=== PATIENT | male | born 1980 | race Two or more races ===

== ENCOUNTER 2020-03-30 16:17 | Emergency (ER) | payer BC ==
[2020-03-30] MEDS ORDERED: SODIUM CHLORIDE 0.9% 500 ML INFUS.BAG IV ONE (16:23)
--- NOTE | 2020-03-30 16:30 | PDOC ---
History of Present Illness - General Chief Complaint: Weakness Stated Complaint: WHILE AT WORK WAS OVER HEATED TINGLING TO HANDS Time Seen by Provider: 03/30/20 16:23 History Source: Patient Exam Limitations: No Limitations - History of Present Illness Initial Comments: Gabriel is a 40 yo M who denies having any pmh who presents to the [facility] er stating he is dehydrated and feels like he has heat exhaustion. 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 States he has been trying to drink orally but still persistently sweating and feels weak, fatigued, and exhausted. Denies headache, nausea, vomiting, blurry vision, fevers, chills infections, chest pain, SOb, difficulty breathing PCP: None PSH: Left finger Sx Social Hx: Smokes 1 PPD. Denies alcohol or illicit drug usage Allergies: NKA, NKDA Past History - Medical History Allergies/Adverse Reactions: Allergies Allergy/AdvReac Type Severity Reaction Status Date / Time shellfish derived Allergy Intermediate Difficulty Verified 03/30/20 16:33 Breathing Home Medications: Ambulatory Orders Albuterol Sulfate [Albuterol Sulfate Hfa] 8.5 gm IH PRN 03/30/20 Ascorbic Acid [Vitamin C] 100 mg PO DAILY 03/30/20 Cholecalciferol (Vitamin D3) [Vitamin D3 -] 1,000 unit PO DAILY 03/30/20 Multivit-Mins/Iron/Folic/Lycop [Centrum Ultra Men's Tablet] 1 tab PO DAILY 03/30/20 - Psycho-Social/Smoking History Smoking History: Current every day smoker Have you smoked in the past 12 months: Yes Number of Cigarettes Smoked Daily: 20 Review of Systems - Review of Systems Able to Perform ROS?: Yes Comments:: CONSTITUTIONAL: Present: Fatigue Absent: fever, no chills EYES: Absent: visual changes ENT: Absent: ear pain, no sore throat CARDIOVASCULAR: Absent: chest pain, no palpitations RESPIRATORY: Absent: cough, no SOB GI: Absent: abdominal pain, no nausea, no vomiting, no constipation, no diarrhea GENITOURINARY: Absent: dysuria, no frequency, no hematuria MUSKULOSKELETAL: Absent: back pain, no arthralgia, no myalgia SKIN: Absent: rash NEURO: Absent: headache *Physical Exam - Physical Exam GENERAL: Well-appearing, well-nourished. No apparent distress. HEENT: Normocephalic, atraumatic. PERRL, EOM intact. CARDIOVASCULAR: Normal S1, S2. Regular rate and rhythm. PULMONARY: No evidence of respiratory distress. Lungs clear to auscultation bilaterally. No wheezing, rales or rhonchi. ABDOMEN: Soft, non-distended, non-tender. EXTREMITIES: Normal ROM in all four extremities. No gross deformities. SKIN: Warm, dry. No rash NEUROLOGICAL: No focal neurological deficits. Medical Decision Making - Medical Decision Making Gabriel is a 40 yo M who denies having any pmh who presents to the [facility] er stating he is dehydrated and feels like he has heat exhaustion. 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 States he has been trying to drink orally but still persistently sweating and feels weak, fatigued, and exhausted. Vital Signs Temp Pulse Resp BP Pulse Ox 98.6 F 80 20 139/86 99 03/30/20 16:19 03/30/20 16:19 03/30/20 16:19 03/30/20 16:19 03/30/20 16:19 DDx IBNLT: Dehydration, heat exhaustion, heat stroke Plan: EKG, IV hydration, re-assess EKG: NS rate of 59, pr 144, narrow complexes, qrs 82, normal axis, early repol hypertrophy, no ST elevations or depressions, QTc 388, normal T waves. No evidence of WPW, brugada, arvd, or wellens. Re-assessment: Patient feeling better after IV hydration and requesting to be discharged. The patient appears clinically sober, is A&O x4, and appears to be capable and have capacity to make reasonable decisions. The patient states they are currently in the emergency department, knows who the president is, states the correct time, correct day, and correct month. The patient is ambulatory in ER and has walked around the nursing station multiple times with a straight gait, and is not ataxic. Tolerating PO well, ate a sandwich and drank juice. Denies having any SI or HI. Patient states will not be driving home. I discussed the physical exam findings, ancillary test results and final diagnoses with the patient. I answered all of the patient's questions. The patient was satisfied with the care received and felt comfortable with the discharge plan and treatment plan. The patient will call their primary care physician within 24 hours to arrange follow-up and will return to the Emergency Department with any new, persistent or worsening symptoms. Disposition: Home with PCP referall and return precautions Please note, this clinical encounter is taking place during a federal and state health care emergency attributable to the novel Glass Virus pandemic. The [place] of the Department of Health and Human Services has declared, pursuant to the Public Health Service Act 319F-3 (42 U.S.C. 247d-6d), that a covered persons activities related to medical countermeasures against COVID-19 will be immune from liability under Federal and State law. Discharge - Discharge Information Problems reviewed: Yes Clinical Impression/Diagnosis: Dehydration Heat exhaustion Qualifiers: Encounter type: initial encounter Qualified Code(s): T67.5XXA - Heat exhaustion, unspecified, initial encounter Condition: Stable Disposition: HOME - Admission No - Follow up/Referral Referrals: [facility] at [place] [Provider Group] - Patient Discharge Instructions Patient Printed Discharge Instructions: DI for Heat Exhaustion and Heat Stroke Additional Instructions: You came into the ER with dehydration and heat exhaustion. You felt better after we gave you IV hydration. You must return to the Emergency Department with any new complaints, if your symptoms persist and do not improve or if you develop any other new or worsening concerns. As discussed, please call to follow up with your Primary Care physician in 1-2 days to discuss what happened to you in the emergency room, and make sure you are being looked after and taken care of. Your emergency room visit is not complete without this follow up appointment. Please read the attached handouts for further information about your ER visit and what you should do moving forward. Thank you for coming to the [facility]. We hope you feel better soon! Print Language: YI - Post Discharge Activity Work/Back to School Note: Back to Work
[2020-03-30 16:34] VITALS: TEMP 98.6; BMI 23.3
--- NOTE | 2020-03-30 17:21 | PDOC ---
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 No actual loss of consciousness, symptoms were progressive over 3 to 4 hours, presents for evaluation. No history of sudden syncope, unlimited exercise tolerance at baseline. No recent dehydration or infection. 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 Received IV fluids with improved symptoms EKG is normal Agrees with discharge plan, understands return criteria Heart Score/ECG Review #1 ECG reviewed & interpreted by me at: 17:09 General ECG Interpretation: Sinus Rhythm, Normal Rate (59), Normal Intervals (qtc 388, borderline LVH), No acute ischemic changes Discharge - Discharge Information Problems reviewed: Yes Clinical Impression/Diagnosis: Dehydration Heat exhaustion Qualifiers: Encounter type: initial encounter Qualified Code(s): T67.5XXA - Heat exhaustion, unspecified, initial encounter Condition: Stable Disposition: HOME - Follow up/Referral Referrals: [facility] at [place] [Provider Group] - Patient Discharge Instructions Patient Printed Discharge Instructions: DI for Heat Exhaustion and Heat Stroke Additional Instructions: You came into the ER with dehydration and heat exhaustion. You felt better after we gave you IV hydration. You must return to the Emergency Department with any new complaints, if your symptoms persist and do not improve or if you develop any other new or worsening concerns. As discussed, please call to follow up with your Primary Care physician in 1-2 days to discuss what happened to you in the emergency room, and make sure you are being looked after and taken care of. Your emergency room visit is not complete without this follow up appointment. Please read the attached handouts for further information about your ER visit and what you should do moving forward. Thank you for coming to the [facility]. We hope you feel better soon! Print Language: TAIWANESE - Post Discharge Activity
[2020-03-30 17:23] VITALS: BP 131/88; PULSE 79
--- NOTE | 2020-03-31 09:14 | EKG ---
Test Reason : Blood Pressure : / mmHG Vent. Rate : 059 BPM Atrial Rate : 059 BPM P-R Int : 144 ms QRS Dur : 082 ms QT Int : 392 ms P-R-T Axes : 062 073 054 degrees QTc Int : 388 ms SINUS BRADYCARDIA MODERATE VOLTAGE CRITERIA FOR LVH, MAY BE NORMAL VARIANT BORDERLINE ECG NO PREVIOUS ECGS AVAILABLE Confirmed by MD ESTEFANIA, BARRY ([id number]) on 03/31/2020 9:14:44 AM Referred By: DR WILLIAMSON Confirmed By:BARRY MAC MD
== END 2020-03-30 17:28 | disposition home or self-care (01) ==
LOC: FER 16:17
DX: T67.5XXA Heat exhaustion, unspecified, initial encounter (principal); E86.0 Dehydration
CPT/HCPCS: 93005; 99284-25

== ENCOUNTER 2020-04-05 08:41 | Inpatient (IN) | payer BC ==
[2020-04-05] MEDS ORDERED: SODIUM CHLORIDE 0.9% 500 ML INFUS.BAG IV ONE (09:13)
[2020-04-05] MEDS ORDERED: ACETAMINOPHEN 1000 MG/100 ML VIAL (NON FORMULARY) IVPB ONE (09:13)
--- NOTE | 2020-04-05 09:17 | PDOC ---
History of Present Illness - General Chief Complaint: Pain, Acute Stated Complaint: RT. FLANK PAIN Time Seen by Provider: 04/05/20 08:56 History Source: Patient Exam Limitations: No Limitations - History of Present Illness Initial Comments: 04/05/20 09:14 HPI 40 YOM with h/o Asthma, current tobacco use, L5 disc herniation and chronic back pain, hemorrhoids p/w RUQ abdominal pain since last night. Pt states he has sharp, nonradiating RUQ pain beginning last night, constant, no exacerbating or alleviating factors no trauma. no meds taken [employer]. 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 Denies fever, chills, chest pain, SOB, palpitation, dizziness, weakness, N, V, D, dysuria, urgency or frequency, hematuria, bladder and bowel problems, focal weakness/paresthesias, leg swelling/pain, rash. No sick contacts or travel. No new changes in medications. No suspicious food intake. no prior sx of similar symptoms. Allergies: shellfish Past medical History/PSH: as above Social history: Lives with family. No ETOH or drug use. +current tobacco use. Meds: none Review of systems Constitutional: no fevers or chills. No weakness HEENT: no headache or dizziness. No congestion. No visual/hearing disturbances. CVS: no cp or syncope. Resp: no sob. No cough. Gastrointestinal: +abdominal pain, No nausea, vomiting, diarrhea. no bloody stools Genitourinary: no urinary sx, hematuria. MUSCULOSKELETAL: No joint pain and swelling. No neck or back pain. SKIN: no redness or skin changes, no discharge, no rash. No wounds. Hematologic: no easy bruising/bleeding. NEUROLOGIC: No headache, dizziness, LOC or altered mental status. No weakness, numbness or tingling. Psych: no anxiety or depression Allergic/Immunologic: no allergies All other systems reviewed and negative, or as documented in HPI. Physical exam General: Well appearing, awake and alert, NAD. not colicky appearing. HEENT: NCAT, PERRL, EOMI, clear conjunctiva, anicteric, moist mucus membranes, clear oropharynx, no oral lesions.. Neck: neck supple, FROM Resp: CTAB, normal and even respirations, no respiratory distress CVS: RRR, no murmurs, 2+ peripheral pulses throughout, no peripheral edema Abdomen: soft, +vol guarding, +RUQ tenderness, +Gautam's. no rebound. no CVAT. Back: nontender, normal inspection and ROM MSK: no edema, CAMPOS x4, ROM intact. No clubbing or cyanosis. normal bulk and tone. Extremities: no calf tenderness Neuro: alert, oriented appropriately; no focal neurologic deficits Psych: Calm and cooperative Skin: warm and well perfused, cap refill <2 sec, normal color, no rash or skin discoloration. 04/05/20 12:40 04/05/20 13:19 Past History - Medical History Allergies/Adverse Reactions: Allergies Allergy/AdvReac Type Severity Reaction Status Date / Time shellfish derived Allergy Intermediate Difficulty Verified 04/05/20 08:47 Breathing Home Medications: Ambulatory Orders Albuterol Sulfate [Albuterol Sulfate Hfa] 8.5 gm IH PRN 03/30/20 Ascorbic Acid [Vitamin C] 100 mg PO DAILY 03/30/20 Cholecalciferol (Vitamin D3) [Vitamin D3 -] 1,000 unit PO DAILY 03/30/20 Multivit-Mins/Iron/Folic/Lycop [Centrum Ultra Men's Tablet] 1 tab PO DAILY 03/30/20 Asthma: Yes COPD: No - Immunization History Immunization Up to Date: Yes - Psycho-Social/Smoking History Smoking History: Never smoked Have you smoked in the past 12 months: Yes Number of Cigarettes Smoked Daily: 20 - Substance Abuse Hx (Audit-C & DAST Scrn) How often the patient has a drink containing alcohol: Never Score: In Men: 4 or > Positive; In Women: 3 or > Positive: 0 Screen Result (Pos requires Nsg. Audit-10AR): Negative *Physical Exam - Vital Signs Last Vital Signs Temp Pulse Resp BP Pulse Ox 97.8 F 82 17 124/72 99 04/05/20 08:48 04/05/20 08:48 04/05/20 08:48 04/05/20 08:48 04/05/20 08:48 ED Treatment Course - LABORATORY CBC & Chemistry Diagram: 04/05/20 09:00 04/05/20 09:00 Medical Decision Making - Medical Decision Making 04/05/20 09:17 Vital Signs Temp Pulse Resp BP Pulse Ox 97.8 F 82 17 124/72 99 04/05/20 08:48 04/05/20 08:48 04/05/20 08:48 04/05/20 08:48 04/05/20 08:48 VS reviewed, wnl DDx abdominal pain: Renal colic, biliary colic, metabolic/electrolyte derangem ents. GERD, PUD, esophageal spasm, pancreatitis, hepatitis, constipation, colitis, gastroenteritis, cholecystitis, UTI, pyelonephritis, ileus, SBO, medication side effect, hernia, appendicitis, diverticulitis, mesenteric ischemia. msk strain, mesenteric adenitis, psoas abscess. limited bedside ultrasound no gb stones, distended gb, normal cbd, AGBW <3cm, no hydronephrosis, normal bladder, no retention, no pelvic FF CT a/p indicated to r/o appy, given atypical sx, unremarkable sono labs and lytes wnl, normal lipase and Lipase mild leukocytosis of 12K. 04/05/20 11:48 Official abdomen ultrasound is otherwise unremarkable, there is mild hepatomegaly otherwise no evidence of cholecystitis or stones. There is trace biliary sludge in the gallbladder lumen but normal bile ducts in size 04/05/20 12:41 however, CT a/p with cholecystitis, distended GB and now with pericholecystic FF. sludge, no stones otherwise, There are subcentimeter hepatic cysts. There is a nonspecific cyst measuring 1.1 cm in the posterior superior border of the pancreatic body. No biliary tract dilatation, very small free fluid is noted. acalculus cholecystitis? may need MRCP given findings now txs and pre op labs ordered IV abx, ceftriaxone and flagyl for empiric coverage covid [address] Calderon consult called for surgery, awaiting call back spoke with Dr Chávez, agree with plan and will come to eval. admit to [facility] for management, npo, bowel rest, analgesia, abx admitting to Dr Ozuna hospitalist, s/o to Dr Cleveland 04/05/20 12:42 04/05/20 12:55 04/05/20 13:20 04/05/20 13:20 Discharge - Discharge Information Problems reviewed: Yes Clinical Impression/Diagnosis: Biliary sludge, Acute cholecystitis Condition: Fair - Admission Yes - Follow up/Referral - Patient Discharge Instructions - Post Discharge Activity
[2020-04-05] MEDS ORDERED: ACETAMINOPHEN INJECTION 100 ML IVPB ONE (09:23)
[2020-04-05 09:28] LABS: BASO % 0.4 % (0-2.0); EOS % 2.2 % (0-4.5); HEMATOCRIT 45.5 % (35.4-49); HEMOGLOBIN 14.6 GM/dL (11.7-16.9); LYMPH % 12.6 % (8-40); MCHC 32.1 g/dl (32.0-35.9); MEAN CELL VOLUME 90.3 fl (80-96); MEAN PLT VOLUME 8.1 fl (7.5-11.1); MONO % 8.3 % (3.8-10.2); NEUT % 76.5 % (42.8-82.8); PLATELET COUNT 227 K/MM3 (134-434); RBC 5.03 M/mm3 (4.00-5.60); RDW 12.6 % (11.9-15.9); WHITE BLOOD COUNT 12.2 K/mm3 (4.0-10.0)
[2020-04-05 10:08] LABS: ALBUMIN 3.6 g/dl (3.4-5.0); BILIRUBIN,TOTAL 0.4 mg/dL (0.2-1); BLOOD UREA NITROGEN 17.4 mg/dL (7-18); CALCIUM 8.7 mg/dL (8.5-10.1); CREATININE 1.1 mg/dL (0.55-1.3); POTASSIUM 4.9 mmol/L (3.5-5.1); TOT PROT 6.7 g/dl (6.4-8.2)
[2020-04-05] MEDS ORDERED: CEFTRIAXONE 1,000 MG in DEXTROSE 5%-WATER - 50 ML IVPB ONE (12:43)
[2020-04-05] MEDS ORDERED: CEFTRIAXONE 1 GM/50 ML BAG ONE (12:48)
[2020-04-05 13:08] LABS: URINE APPEARANCE CLEAR; URINE BILIRUBIN NEGATIVE (NEGATIVE); URINE COLOR YELLOW; URINE GLUCOSE (UA) NEGATIVE (NEGATIVE); URINE KETONE NEGATIVE (NEGATIVE); URINE LEUK ESTERASE NEGATIVE (NEGATIVE); URINE NITRITE NEGATIVE (NEGATIVE); URINE PROTEIN NEGATIVE (NEGATIVE)
--- NOTE | 2020-04-05 13:21 | PN ---
Teaching Attending Note Name of Resident: Mariam Grayson ATTENDING PHYSICIAN STATEMENT I saw and evaluated the patient. I reviewed the resident's note and discussed the case with the resident. I agree with the resident's findings and plan as documented. SUBJECTIVE: 40yo M with hx of mild intermittent asthma who presented today with RUQ pain that started last night. Patient reports consistent diet with high fatty foods and starting a new weight gain supplement. He reports this has not previously occurred. He denies any vomiting or nausea at the current moment. He reports that his pain was stabbing in nature, but has markedly improved since he has been treated in the ER. In ER, pt was given Rocephin/Flagyl. CT A/P confirmed pericholecystic stranding and thickened wall with U/S showing no dilation of ducts or any GB stones noted. Patient otherwise denies fever/chills, SOB, CP, palpitations, diarrhea/constipation, polyuria, dysuria. Past medical History: As above PSHx: None Social history: Lives with family. No alcohol or drugs. Current 1ppd tobacco user for multiple years Meds: Albuterol inhaler PRN (rarely used), Vitamins: D3, Multivitamin Fam Hx: OBJECTIVE: Vital Signs Temperature 97.8 F 04/05/20 08:48 Pulse Rate 82 04/05/20 08:48 Respiratory Rate 17 04/05/20 08:48 Blood Pressure 124/72 04/05/20 08:48 O2 Sat by Pulse Oximetry (%) 99 04/05/20 08:48 Gen: NAD, awake, alert, oriented x3 HEENT: NC/AT, EOMI, NASIR, sclera anicteric, MMM Neck: No JVD LUNG: CTA b/l without wheezes or rales. on RA CARD: RRR, no murmurs appreciated, normal S1/S2 ABD: Soft, tenderness RUQ, nondistended, normoactive BS, no guarding, no rebound, no hepatomegaly via percussion EXT: 2+ distal extremity pulses b/l, no edema Skin: No jaundice, no rashes. CBC, BMP 04/05/20 09:00 04/05/20 09:00 Hepatic Panel Total Bilirubin 0.4 mg/dL (0.2-1) 04/05/20 09:00 AST 30 U/L (15-37) 04/05/20 09:00 ALT 26 U/L (13-61) 04/05/20 09:00 Alkaline Phosphatase 92 U/L (45-117) 04/05/20 09:00 Albumin 3.6 g/dl (3.4-5.0) 04/05/20 09:00 ASSESSMENT AND PLAN: Alcalculous Cholecystitis Mild Leukocytosis Incidental Pancreatic Cyst History of Mild intermittent Asthma, not in exacerbation --Agree with Rocephin/Flagyl; to continue --NPO --Pain control PRN --Zofran PRN pending Qtc evaluation --Surgery on board to evaluate patient --D5-LR@75cc/hr for gentle hydration while NPO --Counselled on diet to be followed for future --Pancreatic cyst noted incidentally on CT A/P without any pancreatic inflammation --Will need MRI for evaluation which can be deferred to outpatient follow-up with PCP FEN: Fluids - as above Electrolytes - No abnormalitites Nutrition: NPO as above DVT PPX: SCDs both legs Rest per resident note DO Kan Mcgarry IM
[2020-04-05 13:36] LABS: INR 0.92 (0.83-1.09); PROTHROMBIN TIME (PATIENT) 10.9 SEC (9.7-13.0)
[2020-04-05 13:38] LABS: ACTIVATED PTT 29.3 SECONDS (25.2-36.5)
[2020-04-05] MEDS ORDERED: ACETAMINOPHEN 1000 MG/100 ML VIAL (NON FORMULARY) IVPB PRN (14:24)
--- NOTE | 2020-04-05 14:26 | HP ---
<Mariam Grayson - Last Filed: 04/06/20 07:01> CHIEF COMPLAINT: abdominal pain PCP: none HISTORY OF PRESENT ILLNESS: 40 yo male with PMHx of asthma, hemorrhoids, and L5 disc injury, presented to the ED with 1 day of sharp persistent abdominal pain. Patient pain woke him up from sleep at 3 in the morning. The pain was worse with movement or touching his right upper abdominal area. At 7 am, he said the pain was a 10/10 and decided he couldn't go to work and he had to come to the hospital. He was given Tylenol in the ED and currently rates the pain as a 3/3. He does endorse eating a burger and chicken nuggets from [employer] yesterday, as well as a few beers yesterday at a [employer]. He says he eats fast food very frequently. He also reports recently starting a weight gain drink called ProBueno. He denies having any pain like this before. He denies fever n/v/d or any color changes in his stool. ER course was notable for: (1) CT Ab/pelvis w/contrast + cholecystitis and pancreatic cyst (2) US Ab mild hepatomegaly (3) CBC, leukocytosis 12.2 (4) Ceftriaxone and Flagy started Recent Travel: denies PAST MEDICAL HISTORY: - asthma (rescue inhaler 1-2 times a month) - hemorrhoids - L5 disc injury PAST SURGICAL HISTORY: - L thumb reconstructive surgery Family Hx: - father HTN Social History: Smokin ppd Alcohol: occasional, few drinks on weekends Drugs: marijuana only denies cocaine, heroine, vaping, or any other drugs Allergies shellfish derived Allergy (Intermediate, Verified 04/05/20 08:47) Difficulty Breathing HOME MEDICATIONS: Home Medications Medication Instructions Recorded Albuterol Sulfate [Albuterol 8.5 gm IH PRN 03/30/20 Sulfate Hfa] Ascorbic Acid [Vitamin C] 100 mg PO DAILY 03/30/20 Cholecalciferol (Vitamin D3) 1,000 unit PO DAILY 03/30/20 [Vitamin D3 -] Multivit-Mins/Iron/Folic/Lycop 1 tab PO DAILY 03/30/20 [Centrum Ultra Men's Tablet] REVIEW OF SYSTEMS CONSTITUTIONAL: Absent: fever, chills, diaphoresis, generalized weakness, malaise, loss of appetite, weight change HEENT: Absent: rhinorrhea, nasal congestion, throat pain, throat swelling, difficulty swallowing, mouth swelling, ear pain, eye pain, visual changes CARDIOVASCULAR: Absent: chest pain, syncope, palpitations, irregular heart rate, lightheadedn ess, peripheral edema RESPIRATORY: Absent: cough, shortness of breath, dyspnea with exertion, orthopnea, wheezing, stridor, hemoptysis GASTROINTESTINAL: Abdominal pain Absent: abdominal distension, nausea, vomiting, diarrhea, constipation, melena, hematochezia GENITOURINARY: Absent: dysuria, frequency, urgency, hesitancy, hematuria, flank pain, genital pain MUSCULOSKELETAL: Absent: myalgia, arthralgia, joint swelling, back pain, neck pain SKIN: Absent: rash, itching, pallor HEMATOLOGIC/IMMUNOLOGIC: Absent: easy bleeding, easy bruising, lymphadenopathy, frequent infections ENDOCRINE: Absent: unexplained weight gain, unexplained weight loss, heat intolerance, cold intolerance NEUROLOGIC: Absent: headache, focal weakness or paresthesias, dizziness, unsteady gait, seizure, mental status changes, bladder or bowel incontinence PSYCHIATRIC: Absent: anxiety, depression, suicidal or homicidal ideation, hallucinations. PHYSICAL EXAMINATION Vital Signs - 24 hr 04/05/20 04/05/20 08:48 13:58 Temperature 97.8 F Pulse Rate 82 Pulse Rate [ 73 Right] Respiratory 17 16 Rate Blood Pressure 124/72 Blood Pressure 142/88 [Right Arm] O2 Sat by Pulse 99 99 Oximetry (%) GENERAL: Awake, alert, and fully oriented, in no acute distress. HEAD: Normal with no signs of trauma. EYES: Pupils equal, round and reactive to light, extraocular movements intact, sclera anicteric, conjunctiva clear. ENT: oropharynx clear without exudates. Moist mucous membranes. NECK: Normal range of motion, supple without lymphadenopathy LUNGS: Breath sounds equal, clear to auscultation bilaterally. HEART: Regular rate and rhythm, normal S1 and S2 ABDOMEN: Soft, tender to RUQ with guarding, + clark sign, normoactive bowel sounds. MUSCULOSKELETAL: Normal range of motion at all joints. No bony deformities or tenderness. No CVA tenderness. UPPER EXTREMITIES: 2+ pulses, warm, well-perfused. No cyanosis. No clubbing. No peripheral edema. LOWER EXTREMITIES: 2+ pulses, warm, well-perfused. No calf tenderness. No peripheral edema. NEUROLOGICAL: Cranial nerves II-XII intact. Normal speech. PSYCHIATRIC: Cooperative. Good eye contact. Appropriate mood and affect. SKIN: Warm, dry, normal turgor, no rashes or lesions noted, normal capillary refill. Laboratory Results - last 24 hr 04/05/20 04/05/20 04/05/20 09:00 09:00 12:37 WBC 12.2 H RBC 5.03 Hgb 14.6 Hct 45.5 MCV 90.3 MCH 29.0 MCHC 32.1 RDW 12.6 Plt Count 227 MPV 8.1 Absolute Neuts (auto) 9.4 H Neutrophils % 76.5 Lymphocytes % 12.6 Monocytes % 8.3 Eosinophils % 2.2 Basophils % 0.4 Nucleated RBC % 0 PT with INR INR PTT (Actin FS) Sodium 141 Potassium 4.9 Chloride 108 H Carbon Dioxide 25 Anion Gap 8 BUN 17.4 Creatinine 1.1 Est GFR (CKD-EPI)AfAm 95.46 Est GFR (CKD-EPI)NonAf 82.36 Random Glucose 108 H Calcium 8.7 Total Bilirubin 0.4 AST 30 ALT 26 Alkaline Phosphatase 92 Total Protein 6.7 Albumin 3.6 Lipase 85 Urine Color Yellow Urine Appearance Clear Urine pH 7.0 Ur Specific [place] 1.029 Urine Protein Negative Urine Glucose (UA) Negative Urine Ketones Negative Urine Blood Negative Urine Nitrite Negative Urine Bilirubin Negative Urine Urobilinogen 1.0 Ur Leukocyte Esterase Negative Blood Type Antibody Screen 04/05/20 04/05/20 13:13 13:13 WBC RBC Hgb Hct MCV MCH MCHC RDW Plt Count MPV Absolute Neuts (auto) Neutrophils % Lymphocytes % Monocytes % Eosinophils % Basophils % Nucleated RBC % PT with INR 10.90 INR 0.92 PTT (Actin FS) 29.3 Sodium Potassium Chloride Carbon Dioxide Anion Gap BUN Creatinine Est GFR (CKD-EPI)AfAm Est GFR (CKD-EPI)NonAf Random Glucose Calcium Total Bilirubin AST ALT Alkaline Phosphatase Total Protein Albumin Lipase Urine Color Urine Appearance Urine pH Ur Specific [place] Urine Protein Urine Glucose (UA) Urine Ketones Urine Blood Urine Nitrite Urine Bilirubin Urine Urobilinogen Ur Leukocyte Esterase Blood Type O POSITIVE Antibody Screen Negative IMAGING: AB CT w/contrast: Acute cholecystitis is identified. No obvious radiopaque biliary calculus is seen. There is no biliary tract dilatation. A very small amount of free fluid is noted within the lower pelvis. A 1.1 x 1.1 cm nonspecific cyst is seen within or abutting the posterosuperior border of the pancreatic body. Correlate with contrast-enhanced MRI including MRCP. Subcentimeter hepatic cysts. AB US: Mild hepatomegaly, otherwise normal abdominal sonogram. ASSESSMENT/PLAN: 40 yo male with PMHx of asthma, hemorrhoids and L5 herniated disc presents to the ED with 1 day of sharp abdominal pain in RUQ. CT showed cholecystitis. Admitted to hospital for IV antibiotic treatment. Cholecystitis - CT report + for cholecystitis - leukocytosis - continue IV ceftriaxone & flagyl - surgery consulted - f/u recs - D5 LR 75 ml/hr - NPO - Tylenol for pain - PRN zofran - educate on better diet and decreasing fatty foods Pancreatic Cyst - follow up MRI/MRCP recommended, can be done as outpatient DVT prophylaxis - SCDs Smoker - 14 mg nicotine patch/ can increase if needed - educated on quitting FEN - IVF - NPO Visit type - Emergency Visit Emergency Visit: Yes ED Registration Date: 04/05/20 Care time: The patient presented to the Emergency Department on the above date and was hospitalized for further evaluation of their emergent condition. - New Patient This patient is new to me today: Yes Date on this admission: 04/05/20 - Critical Care Critical Care patient: No ATTENDING PHYSICIAN STATEMENT I saw and evaluated the patient. I reviewed the resident's note and discussed the case with the resident. I agree with the resident's findings and plan as documented. SUBJECTIVE: OBJECTIVE: ASSESSMENT AND PLAN: <Alexandre Ozuna - Last Filed: 04/06/20 11:44> CHIEF COMPLAINT: PCP: HISTORY OF PRESENT ILLNESS: ER course was notable for: (1) (2) (3) Recent Travel: PAST MEDICAL HISTORY: PAST SURGICAL HISTORY: Social History: Smoking: Alcohol: Drugs: Allergies shellfish derived Allergy (Intermediate, Verified 04/05/20 08:47) Difficulty Breathing HOME MEDICATIONS: Home Medications Medication Instructions Recorded Albuterol Sulfate [Albuterol 8.5 gm IH PRN 03/30/20 Sulfate Hfa] Ascorbic Acid [Vitamin C] 100 mg PO DAILY 03/30/20 Cholecalciferol (Vitamin D3) 1,000 unit PO DAILY 03/30/20 [Vitamin D3 -] Multivit-Mins/Iron/Folic/Lycop 1 tab PO DAILY 07/28/20 [Centrum Ultra Men's Tablet] REVIEW OF SYSTEMS CONSTITUTIONAL: Absent: fever, chills, diaphoresis, generalized weakness, malaise, loss of appetite, weight change HEENT: Absent: rhinorrhea, nasal congestion, throat pain, throat swelling, difficulty swallowing, mouth swelling, ear pain, eye pain, visual changes CARDIOVASCULAR: Absent: chest pain, syncope, palpitations, irregular heart rate, lightheadedness, peripheral edema RESPIRATORY: Absent: cough, shortness of breath, dyspnea with exertion, orthopnea, wheezing, stridor, hemoptysis GASTROINTESTINAL: Absent: abdominal pain, abdominal distension, nausea, vomiting, diarrhea, constipation, melena, hematochezia GENITOURINARY: Absent: dysuria, frequency, urgency, hesitancy, hematuria, flank pain, genital pain MUSCULOSKELETAL: Absent: myalgia, arthralgia, joint swelling, back pain, neck pain SKIN: Absent: rash, itching, pallor HEMATOLOGIC/IMMUNOLOGIC: Absent: easy bleeding, easy bruising, lymphadenopathy, frequent infections ENDOCRINE: Absent: unexplained weight gain, unexplained weight loss, heat intolerance, cold intolerance NEUROLOGIC: Absent: headache, focal weakness or paresthesias, dizziness, unsteady gait, seizure, mental status changes, bladder or bowel incontinence PSYCHIATRIC: Absent: anxiety, depression, suicidal or homicidal ideation, hallucinations. PHYSICAL EXAMINATION Vital Signs - 24 hr 04/05/20 04/05/20 04/05/20 13:14 13:58 18:25 Temperature 98.6 F 98.4 F Pulse Rate 70 65 Pulse Rate [ 73 Right] Respiratory 16 16 20 Rate Blood Pressure 129/85 122/65 Blood Pressure 142/88 [Right Arm] O2 Sat by Pulse 99 99 100 Oximetry (%) 04/05/20 04/05/20 04/06/20 19:32 21:00 06:00 Temperature 98.3 F 98.4 F Pulse Rate 68 72 Pulse Rate [ Right] Respiratory 20 20 20 Rate Blood Pressure 141/81 123/66 Blood Pressure [Right Arm] O2 Sat by Pulse 100 100 Oximetry (%) 04/06/20 04/06/20 09:00 10:00 Temperature 98.6 F Pulse Rate 70 Pulse Rate [ Right] Respiratory 20 20 Rate Blood Pressure 143/78 Blood Pressure [Right Arm] O2 Sat by Pulse 100 100 Oximetry (%) GENERAL: Awake, alert, and fully oriented, in no acute distress. HEAD: Normal with no signs of trauma. EYES: Pupils equal, round and reactive to light, extraocular movements intact, s clera anicteric, conjunctiva clear. No lid lag. EARS, NOSE, THROAT: Ears normal, nares patent, oropharynx clear without exudates. Moist mucous membranes. NECK: Normal range of motion, supple without lymphadenopathy, JVD, or masses. LUNGS: Breath sounds equal, clear to auscultation bilaterally. No wheezes, and no crackles. No accessory muscle use. HEART: Regular rate and rhythm, normal S1 and S2 without murmur, rub or gallop. ABDOMEN: Soft, nontender, not distended, normoactive bowel sounds, no guarding, no rebound, no masses. No hepatomegaly or splenomegaly. MUSCULOSKELETAL: Normal range of motion at all joints. No bony deformities or tenderness. No CVA tenderness. UPPER EXTREMITIES: 2+ pulses, warm, well-perfused. No cyanosis. No clubbing. No peripheral edema. LOWER EXTREMITIES: 2+ pulses, warm, well-perfused. No calf tenderness. No peripheral edema. NEUROLOGICAL: Cranial nerves II-XII intact. Normal speech. Normal gait. PSYCHIATRIC: Cooperative. Good eye contact. Appropriate mood and affect. SKIN: Warm, dry, normal turgor, no rashes or lesions noted, normal capillary refill. Laboratory Results - last 24 hr 04/05/20 04/05/20 04/05/20 12:37 13:13 13:13 WBC RBC Hgb Hct MCV MCH MCHC RDW Plt Count MPV PT with INR 10.90 INR 0.92 PTT (Actin FS) 29.3 Sodium Potassium Chloride Carbon Dioxide Anion Gap BUN Creatinine Est GFR (CKD-EPI)AfAm Est GFR (CKD-EPI)NonAf Random Glucose Calcium Phosphorus Magnesium Total Bilirubin AST ALT Alkaline Phosphatase Total Protein Albumin Urine Color Yellow Urine Appearance Clear Urine pH 7.0 Ur Specific [place] 1.029 Urine Protein Negative Urine Glucose (UA) Negative Urine Ketones Negative Urine Blood Negative Urine Nitrite Negative Urine Bilirubin Negative Urine Urobilinogen 1.0 Ur Leukocyte Esterase Negative COVID-19 (EULA) Not detected Blood Type Antibody Screen 04/05/20 04/06/20 04/06/20 13:13 06:23 06:23 WBC 9.0 RBC 4.84 Hgb 14.2 Hct 43.7 MCV 90.2 MCH 29.3 MCHC 32.4 RDW 12.9 Plt Count 212 MPV 8.0 PT with INR INR PTT (Actin FS) Sodium 141 Potassium 4.0 Chloride 107 Carbon Dioxide 26 Anion Gap 9 BUN 8.6 Creatinine 1.0 Est GFR (CKD-EPI)AfAm 107.12 Est GFR (CKD-EPI)NonAf 92.42 Random Glucose 97 Calcium 8.3 L Phosphorus 4.1 Magnesium 2.1 Total Bilirubin 0.9 AST 18 ALT 22 Alkaline Phosphatase 66 Total Protein 5.8 L Albumin 3.3 L Urine Color Urine Appearance Urine pH Ur Specific [place] Urine Protein Urine Glucose (UA) Urine Ketones Urine Blood Urine Nitrite Urine Bilirubin Urine Urobilinogen Ur Leukocyte Esterase COVID-19 (EULA) Blood Type O POSITIVE Antibody Screen Negative ASSESSMENT/PLAN: ATTENDING PHYSICIAN STATEMENT I saw and evaluated the patient. I reviewed the resident's note and discussed the case with the resident. I agree with the resident's findings and plan as documented. SUBJECTIVE: OBJECTIVE: ASSESSMENT AND PLAN:
[2020-04-05] MEDS ORDERED: DEXTROSE 5%-LACTATED RINGERS 1,000 ML IV SCH (14:30)
[2020-04-05 14:50] VITALS: BMI 25.1
[2020-04-05] MEDS: NICOTINE 14 MG/24 HOURS TOPICAL PATCH TD SCH (17:46)
[2020-04-06 07:53] LABS: HEMATOCRIT 43.7 % (35.4-49); HEMOGLOBIN 14.2 GM/dL (11.7-16.9); MCH 29.3 pg (25.7-33.7); MCHC 32.4 g/dl (32.0-35.9); MEAN CELL VOLUME 90.2 fl (80-96); PLATELET COUNT 212 K/MM3 (134-434); RBC 4.84 M/mm3 (4.00-5.60); RDW 12.9 % (11.9-15.9)
--- NOTE | 2020-04-06 08:06 | CONSULT ---
- Consultation REQUESTING PROVIDER: General Surgery - Alexandre Chávez CONSULT REQUEST: We have been asked to surgically evaluate this patient for acute cholecystitis PCP: Justin Burrell MD HPI: Called to patrick 40 yo male with PMHx as noted below. Presents to [facility] ED w/ c/o ruq abd pain x1 day. Pain awoke him from his sleep around 3AM. Points to his epigastric region/RUQ. Pain increased in intensity (10/10) and decided to come to hospital for further evaluation. Last meal eaten prior to this episode consisted of burger and chicken nuggets from [employer]. Denies any post prandial n/v. He has experienced this pain before in the past but never sought medical attention as it would subside on it's own after a few hours. Started in Ceftriaxone and Flagyl in the ED. Denies n/v/f/c, CP, palpitations, SOB or SOTELO. Denies change in urine color. Denies PUD/GERD. Denies melena or hematochazia In the ER he had the following imaging studies: 1. ABD/Pelvis CT w/contrast: + cholecystitis and pancreatic cyst 1.1 x 1.1 (posterior superior body of pancreas) 2. ABD U/S:mild hepatomegaly Social History: Smokin ppd Alcohol: occasional, few drinks on weekends Drugs: marijuana only (denies cocaine, heroine, vaping, or any other drugs) PMHx: Asthma. Hemorrhoids, L5 disc injury PSHx: L thumb reconstructive surgery Home Meds: Albuterol Sulfate [Albuterol Sulfate Hfa] 8.5 gm IH PRN 03/30/20 Ascorbic Acid [Vitamin C] 100 mg PO DAILY 03/30/20 Cholecalciferol (Vitamin D3) [Vitamin D3 -] 1,000 unit PO DAILY 03/30/20 Multivit-Mins/Iron/Folic/Lycop [Centrum Ultra Men's Tablet] 1 tab PO DAILY 03/30/20 Allergies: Shellfish (difficulty breathing) ROS: 12 system reviewed and considered negative except for what's contained in the HPI. PE: GENERAL: A&O. NAD HEAD: NC. AT. EYES: PERRL, sclera anicteric, conjunctiva clear. NECK: Normal ROM, supple without lymphadenopathy, JVD, or masses. LUNGS: Unlabored respirations on room air. CTA bilat HEART: RRR ABDOMEN: Soft. Mild RUQ ttp. + BS in all quadrants. No guarding, no rebound, no palpable/pulsatile masses. MUSCULOSKELETAL: No CVA tenderness. UPPER EXTREMITIES: 2+ pulses, warm, well-perfused. No cyanosis. Cap refill <2 seconds. No peripheral edema. LOWER EXTREMITIES: 2+ pulses, warm, well-perfused. No calf tenderness. No peripheral edema. NEUROLOGICAL: Normal speech, gait not observed. PSYCH: Cooperative. Good eye contact. Appropriate mood and affect. SKIN: Warm, dry, normal turgor, no rashes or lesions noted. Last Vital Signs Temp Pulse Resp BP Pulse Ox 98.4 F 72 20 123/66 100 04/06/20 06:00 04/06/20 06:00 04/06/20 06:00 04/06/20 06:00 04/05/20 21:00 CBC 04/06/20 06:23 Hepatic Panel Total Bilirubin 0.4 mg/dL (0.2-1) 04/05/20 09:00 AST 30 U/L (15-37) 04/05/20 09:00 ALT 26 U/L (13-61) 04/05/20 09:00 Alkaline Phosphatase 92 U/L (45-117) 04/05/20 09:00 Albumin 3.6 g/dl (3.4-5.0) 04/05/20 09:00 INR, PTT INR 0.92 (0.83-1.09) 04/05/20 13:13 Blood Type Blood Type O POSITIVE 04/05/20 13:13 Serology Test 04/05/20 13:13 COVID-19 (EULA) Not detected Problem List - Problems (1) Acute cholecystitis Assessment/Plan: Currently NPO since yesterday IV abx Covid negative OR for lap donald possible open today with Dr. Chávez Medical optimization/clearance PRN pain management Will need out-patient follow-up for 1.1 x 1.1 cm pancreatic cyst Above plan discussed with Dr. Chávez and agrees. Code(s): K81.0 - ACUTE CHOLECYSTITIS (2) Low back pain Code(s): M54.5 - LOW BACK PAIN Visit type - Case Type Case Type: ED Admission - Emergency Emergency Visit: Yes ED Registration Date: 04/05/20 Care time: The patient presented to the Emergency Department on the above date and was hospitalized for further evaluation of their emergent condition. - New patient This patient is new to me today: Yes Date on this admission: 04/06/20
[2020-04-06] MEDS ORDERED: DEXTROSE 5%-WATER 100 ML IVPB ONE (08:43)
[2020-04-06 08:52] LABS: ALBUMIN 3.3 g/dl (3.4-5.0); BILIRUBIN,TOTAL 0.9 mg/dL (0.2-1); BLOOD UREA NITROGEN 8.6 mg/dL (7-18); CALCIUM 8.3 mg/dL (8.5-10.1); MAGNESIUM 2.1 mg/dL (1.8-2.4); PHOSPHOROUS 4.1 mg/dL (2.5-4.9); TOT PROT 5.8 g/dl (6.4-8.2)
[2020-04-06] MEDS: NICOTINE 14 MG/24 HOURS TOPICAL PATCH TD SCH (09:59)
[2020-04-06] MEDS ORDERED: CEFTRIAXONE 2 GM in DEXTROSE 5%-WATER 100 ML IVPB SCH (10:00)
--- NOTE | 2020-04-06 10:45 | EKG ---
Test Reason : Blood Pressure : / mmHG Vent. Rate : 060 BPM Atrial Rate : 060 BPM P-R Int : 148 ms QRS Dur : 086 ms QT Int : 402 ms P-R-T Axes : 060 066 050 degrees QTc Int : 402 ms NORMAL SINUS RHYTHM NORMAL ECG WHEN COMPARED WITH ECG OF 30-MAR-2020 17:09, NO SIGNIFICANT CHANGE WAS FOUND Confirmed by Everardo Henriquez ([id number]) on 04/06/2020 10:44:47 AM Referred By: Confirmed By:Everardo Henriquez
[2020-04-06] MEDS ORDERED: MIDAZOLAM HCL 2 MG/2 ML SINGLE DOSE VIAL ONE ×2 (11:18)
[2020-04-06] MEDS ORDERED: PROPOFOL 20 ML ONE (11:19)
[2020-04-06] MEDS ORDERED: ROCURONIUM BROMIDE 50 MG/5 ML SYRINGE ONE (11:19)
[2020-04-06] MEDS ORDERED: oxyCODONE HCL 5 MG TABLET PO PRN (11:51)
[2020-04-06] MEDS ORDERED: morphine SULFATE 4 MG/ML VIAL IVPB PRN (11:51)
--- NOTE | 2020-04-06 11:54 | OP ---
Operative Note - Note: Operative Date: 04/06/20 Pre-Operative Diagnosis: acute acalculus cholecystitis Operation: laparoscopic cholecystectomy, lavage Findings: thickened, inflamed gb Post-Operative Diagnosis: Same as Pre-op Surgeon: Alexandre Chávez Benefits Coordinator: Saurabh Sanders Anesthesiologist/[employer] PROFESSOR: Kalie Coley MD Anesthesia: General Specimens Removed: gb Estimated Blood Loss (mls): 10 Operative Report Dictated: Yes
--- NOTE | 2020-04-06 12:45 | PN ---
Teaching Attending Note Name of Resident: Mariam Grayson ATTENDING PHYSICIAN STATEMENT I saw and evaluated the patient. I reviewed the resident's note and discussed the case with the resident. I agree with the resident's findings and plan as documented. SUBJECTIVE: Patient states that he has a poor diet due to his work. States that he has been having varying degree of symptoms over the last week, not all related to food intake. Currently reports pressure like sensation in the RUQ OBJECTIVE: Vital Signs Period Temp Pulse Resp BP Sys/Castillo Pulse Ox Last 24 Hr 98.3 F-98.6 F 65-73 16-20 122-143/65-88 99-100 GENERAL: Awake, alert, and fully oriented, in no acute distress. HEAD: Normal with no signs of trauma. EYES: Pupils equal, round and reactive to light, extraocular movements intact, sclera anicteric, conjunctiva clear. No lid lag. EARS, NOSE, THROAT: Ears normal, nares patent, oropharynx clear without exudates. Moist mucous membranes. NECK: Normal range of motion, supple without lymphadenopathy, JVD, or masses. LUNGS: Breath sounds equal, clear to auscultation bilaterally. No wheezes, and no crackles. No accessory muscle use. HEART: Regular rate and rhythm, normal S1 and S2 without murmur, rub or gallop. ABDOMEN: Soft,tender in RUQ, BS+, No rebound tenderness MUSCULOSKELETAL: Normal range of motion at all joints. No bony deformities or tenderness. No CVA tenderness. UPPER EXTREMITIES: 2+ pulses, warm, well-perfused. No cyanosis. No clubbing. Cap refill <2 seconds. No peripheral edema. LOWER EXTREMITIES: 2+ pulses, warm, well-perfused. No calf tenderness. No peripheral edema. NEUROLOGICAL: Cranial nerves II-XII intact. Normal speech. Normal gait. PSYCHIATRIC: Cooperative. Good eye contact. Appropriate mood and affect. SKIN: Warm, dry, normal turgor, no rashes or lesions noted. ASSESSMENT AND PLAN: 40 y/o M who presents with nausea/vomiting abdominal pain found to have acute cholecystitis -Continue IV fluids, Abx No signs of Cholangitis at this time plan for lap donald today appreciate Sx recs Advance diet following sx.
[2020-04-06] MEDS ORDERED: NEOSTIGMINE METHYLSULFATE 0.5 MG/ML - 10 ML MDV ONE (12:51)
--- NOTE | 2020-04-06 12:55 | CONS ---
DATE OF CONSULTATION: 04/06/2020 REASON FOR CONSULTATION: Acute cholecystitis. This is an emergency room consultation requested by the emergency room physician. BRIEF HISTORY: This is a 40-year-old male without significant past medical history who presents with severe right upper quadrant pain since 3 a.m. on Sunday. In the emergency room he had a CAT scan of his abdomen and pelvis which showed a thick and inflamed gallbladder. No stones were seen, however, on CAT scan as well as ultrasound. The patient was also noted to have an elevated white blood cell count and he was admitted to the hospital for acute cholecystitis and started on intravenous antibiotics. His symptoms have not improved. He states his pain is worse. He is still requiring pain medication. He denies nausea or vomiting. PAST MEDICAL HISTORY: Asthma. PAST SURGICAL HISTORY: Includes a left thumb surgery without complication. SOCIAL HISTORY: Positive for alcohol and tobacco. He has been encouraged to quit. FAMILY HISTORY: Negative for malignancy in the immediate family. ALLERGIES: SHELLFISH, but no medications. MEDICATIONS: He takes a rescue inhaler. REVIEW OF SYSTEMS: General: Denies fatigue or malaise. Cardiac: Denies chest pain or palpitations. Respiratory: Denies shortness of breath or wheeze. Gastrointestinal: No nausea. No vomiting. As stated in the HPI, admits to right upper quadrant abdominal pain. Genitourinary: Denies dysuria. Musculoskeletal: Denies joint pain. Psychiatric: Denies anxiety, depression or hearing voices. PHYSICAL EXAMINATION: General: This is a thin 40-year-old male in no distress. Vital Signs: He is afebrile. His vital signs are stable. HEENT: His head is normocephalic. His sclerae are anicteric. Neck: Supple. Chest: Clear. Abdomen: Soft. He has significant right upper quadrant tenderness with rebound and guarding. He has no surgical scars. He has a small ventral hernia in the central portion of his abdomen that is reducible. Extremities: Have no edema. Skin: He does have tattoo art on his right upper quadrant and chest area. LABORATORY: His white blood cell count is 9.0, which is down from 12.2. He did have a shift of 9.4 absolute neutrophils. His chemistries show normal liver function tests. Review of his imaging is as stated in the HPI. There is also noted an incidental finding of a pancreatic cyst measuring 1 cm in size that was not calcified and there was a very small amount of free fluid in the pelvis. ASSESSMENT: This is a 40-year-old male with right upper quadrant pain, peritoneal findings in right upper quadrant, CAT scan findings of acute cholecystitis. Even though the patient does not have stones seen on ultrasound or CAT scan, clinically this is acute cholecystitis. I suspect the stones just are not showing up on imaging but are actually present. At this point it is reasonable to proceed with cholecystectomy. Patient understands that there may be another etiology of his pain, however, that has not been elucidated on CAT scan and his history of physical exam findings are consistent. At this point will move in the direction of surgery. Risks and benefits of surgery have been explained to the patient in detail. These are including but not limited to the possibility of conversion to open, the possibility of injury to common bile duct, the possibility of a cystic duct stump leak, the possibility of injury to viscera, possibility of blood loss requiring blood transfusion, possibility of misdiagnosis, possibility of future hernia, possibility of future obstruction plus a multitude of medical risks including but not limited to cardiac, neurologic, pulmonary and vascular complications, even . The patient understands these risks and is agreeable to surgery. He has also been tested for the COVID virus which is negative. He understands that there is a possibility this is a false-negative test and if he actually does have the virus and has surgery he is at increased risk of respiratory failure and thromboembolic events and . Patient also realizes that as far as the incidental finding of the pancreatic cyst, that will not be addressed by me and that will be managed by his medical team and his outpatient providers. DO MONICA JOHNSTON/[id number]
--- NOTE | 2020-04-06 13:10 | PN ---
Physical Exam: SUBJECTIVE: Patient seen and examined bedside. Reports feeling better. Still have some RUQ tenderness. Denies n/v/d, fever, chills or chest pain. Going for lap donald today. OBJECTIVE: Vital Signs Period Temp Pulse Resp BP Sys/Castillo Pulse Ox Last 24 Hr 98.3 F-98.6 F 65-73 16-20 122-143/65-88 99-100 GENERAL: The patient is awake, alert, and fully oriented, in no acute distress. HEAD: Normal with no signs of trauma. EYES: PERRL, extraocular movements intact, sclera anicteric, conjunctiva clear. ENT: moist mucous membranes. NECK: Trachea midline, full range of motion, supple. LUNGS: Breath sounds equal, clear to auscultation bilaterally HEART: Regular rate and rhythm, S1, S2 ABDOMEN: + RUQ tenderness, nondistended, normoactive bowel sounds EXTREMITIES: warm, well-perfused, no edema. NEUROLOGICAL: Normal speech PSYCH: Normal mood, normal affect. SKIN: Warm, dry, normal turgor, no rashes or lesions noted Laboratory Results - last 24 hr 04/05/20 04/05/20 04/05/20 12:37 13:13 13:13 WBC RBC Hgb Hct MCV MCH MCHC RDW Plt Count MPV PT with INR 10.90 INR 0.92 PTT (Actin FS) 29.3 Sodium Potassium Chloride Carbon Dioxide Anion Gap BUN Creatinine Est GFR (CKD-EPI)AfAm Est GFR (CKD-EPI)NonAf Random Glucose Calcium Phosphorus Magnesium Total Bilirubin AST ALT Alkaline Phosphatase Total Protein Albumin Urine Color Yellow Urine Appearance Clear Urine pH 7.0 Ur Specific [place] 1.029 Urine Protein Negative Urine Glucose (UA) Negative Urine Ketones Negative Urine Blood Negative Urine Nitrite Negative Urine Bilirubin Negative Urine Urobilinogen 1.0 Ur Leukocyte Esterase Negative COVID-19 (EULA) Not detected Blood Type Antibody Screen 04/05/20 04/06/20 04/06/20 13:13 06:23 06:23 WBC 9.0 RBC 4.84 Hgb 14.2 Hct 43.7 MCV 90.2 MCH 29.3 MCHC 32.4 RDW 12.9 Plt Count 212 MPV 8.0 PT with INR INR PTT (Actin FS) Sodium 141 Potassium 4.0 Chloride 107 Carbon Dioxide 26 Anion Gap 9 BUN 8.6 Creatinine 1.0 Est GFR (CKD-EPI)AfAm 107.12 Est GFR (CKD-EPI)NonAf 92.42 Random Glucose 97 Calcium 8.3 L Phosphorus 4.1 Magnesium 2.1 Total Bilirubin 0.9 AST 18 ALT 22 Alkaline Phosphatase 66 Total Protein 5.8 L Albumin 3.3 L Urine Color Urine Appearance Urine pH Ur Specific [place] Urine Protein Urine Glucose (UA) Urine Ketones Urine Blood Urine Nitrite Urine Bilirubin Urine Urobilinogen Ur Leukocyte Esterase COVID-19 (EULA) Blood Type O POSITIVE Antibody Screen Negative Active Medications Generic Name Dose Route Start Last Admin Trade Name Freq PRN Reason Stop Dose Admin Acetaminophen 1,000 mg 04/05/20 14:24 04/06/20 06:41 Ofirmev Injection - IVPB 04/06/20 14:25 1,000 mg Q6H PRN Administration PAIN LEVEL 1-3 Enoxaparin Sodium 40 mg 04/07/20 10:00 Lovenox - SQ DAILY DEBORAH Ceftriaxone Sodium 2 gm/ 100 mls @ 200 mls/hr 04/06/20 10:00 04/06/20 10:18 Dextrose IVPB 200 mls/hr DAILY DEBORAH Administration Protocol Metronidazole 500 mg in 100 mls @ 100 mls/hr 04/05/20 18:00 04/06/20 08:59 Flagyl 500mg Premixed Ivpb - IVPB 100 mls/hr Q8H-IV DEBORAH Administration Dextrose/Lactated Ringer's 1,000 mls @ 75 mls/hr 04/05/20 14:30 04/05/20 17:46 D5-Lr - IV 75 mls/hr ASDIR DEBORAH Administration Morphine Sulfate 8 mg 04/06/20 11:51 Morphine Sulfate IVPB Q3H PRN PAIN LEVEL 7 - 10 Nicotine 14 mg 04/05/20 15:30 04/06/20 09:59 Nicoderm Patch - TD Not Given DAILY DEBORAH Oxycodone HCl 7.5 mg 04/06/20 11:51 Roxicodone - PO Q4H PRN PAIN LEVEL 4 - 6 Pantoprazole Sodium 40 mg 04/07/20 10:00 Protonix Iv IVPUSH DAILY DEBORAH ASSESSMENT/PLAN: 40 yo male with PMHx of asthma, hemorrhoids and L5 herniated disc presents to the ED with 1 day of sharp abdominal pain in RUQ. CT showed cholecystitis. Admitted to hospital for IV antibiotic treatment. Cholecystitis - CT report + for cholecystitis - IV ceftriaxone & flagyl - surgery consulted (Dr. Paulino) Lap donald today brief op note: thickened inflamed gallbladder protonix 40 IV daily oxycodone and morphine on board for pain control f/u post op recs Pancreatic Cyst - follow up MRI/MRCP recommended, can be done as outpatient DVT prophylaxis - SCDs - lovenox 40 Smoker - 14 mg nicotine patch FEN - IVF - NPO - can start to increase diet post op as per surgery recs Visit type - Emergency Visit Emergency Visit: Yes ED Registration Date: 04/05/20 Care time: The patient presented to the Emergency Department on the above date and was hospitalized for further evaluation of their emergent condition. - New Patient This patient is new to me today: No - Critical Care Critical Care patient: No - Discharge Referral Referred to [facility] Med P.C.: Yes Physician Referral: Lito Saha DO (GI) ATTENDING PHYSICIAN STATEMENT I saw and evaluated the patient. I reviewed the resident's note and discussed the case with the resident. I agree with the resident's findings and plan as documented. SUBJECTIVE: OBJECTIVE: ASSESSMENT AND PLAN:
--- NOTE | 2020-04-06 13:12 | SURG ---
Surgery Inlayer Silver Note Inlayer Silver: Saurabh Sanders PA-C Date of Service: 04/06/20 Diagnosis: acute acalculus cholecystitis Procedure: laparoscopic cholecystectomy, lavage I was present for the entirety of the operative procedure. For further detail, please refer to operative report. Visit type - Case Type Case Type: ED Admission - Emergency Emergency Visit: Yes ED Registration Date: 04/05/20 Care time: The patient presented to the Emergency Department on the above date and was hospitalized for further evaluation of their emergent condition. - New patient This patient is new to me today: No - Critical Care Critical Care patient: No
[2020-04-06] MEDS ORDERED: ONDANSETRON 4 MG/2 ML VIAL IVPUSH PRN (13:16)
[2020-04-06] MEDS ORDERED: LACTATED RINGERS SOLUTION 1,000 ML IV SCH (13:30)
[2020-04-06] MEDS ORDERED: DEXTROSE 5%-LACTATED RINGERS 1,000 ML IV SCH (13:34)
[2020-04-06] MEDS ORDERED: ACETAMINOPHEN 1000 MG/100 ML VIAL (NON FORMULARY) IVPB PRN (13:34)
--- NOTE | 2020-04-06 13:53 | OP ---
DATE OF OPERATION: 04/06/2020 PREOPERATIVE DIAGNOSIS: Acute acalculous cholecystitis. POSTOPERATIVE DIAGNOSIS: Acute acalculous cholecystitis. PROCEDURE: Laparoscopic cholecystectomy and lavage. SURGEON: Alexandre Chávez DO MERCURY RECOVERER: DANIEL Martins ANESTHESIOLOGIST: SANDIE Banda- SPECIMEN: Gallbladder. FINDINGS: A thickened, inflamed, edematous gallbladder without obvious stones. BLOOD LOSS: Minimal. DRAINS: None. COMPLICATIONS: None. DISPOSITION: Recovery room in stable condition. BRIEF HISTORY: This is a 40-year-old male who presented to [facility] with signs and symptoms of acute cholecystitis. He had a CAT scan evidence to support that. There were no stones noted on ultrasound. The patient presents now for surgery. PROCEDURE: The patient was placed in the supine position. After general anesthesia was initiated the abdomen was prepped and draped in sterile fashion. The patient was already on Rocephin antibiotic. A transverse incision was made infraumbilical with a scalpel used to go through the skin and subcutaneous tissue. A ventral hernia was noted above this incision and was not addressed at the time of surgery. The fascia was lifted. Veress needle was inserted. Pneumoperitoneum was created. Next an 11-mm trocar was placed followed by insertion of a 10-mm 0-degree laparoscope. An additional 11-mm trocar was placed subxiphoid and two 5-mm trocars placed in the right upper quadrant. Attention was turned to the gallbladder. It was pale, edematous, thickened and distended consistent with acute cholecystitis. The fundus was lifted cephalad. The infundibulum retracted laterally. The peritoneal peel was dissected down, exposing a small cystic duct and cystic artery. Both were clipped and divided. The gallbladder was liberated from the liver bed using electrocautery and hemostasis was maintained using electrocautery. The gallbladder was placed in a specimen bag, removed through the infraumbilical trocar site and sent to Pathology marked as "specimen." No bleeding was noted. At this point trocars were removed under direct visualization. Gas was released under the suction device. The fascia at the infraumbilical trocar site was closed with multiple interrupted 0 Vicryl sutures. Again, the hernia above this was not addressed. The 4 skin incisions were closed with Biosyn. Dermabond dressing was placed. Overall the patient tolerated the procedure well. There were no complications. DO MONICA JOHNSTON/[id number] MTDD
[2020-04-07 07:58] LABS: HEMATOCRIT 42.2 % (35.4-49); HEMOGLOBIN 13.6 GM/dL (11.7-16.9); MCH 28.9 pg (25.7-33.7); MCHC 32.2 g/dl (32.0-35.9); MEAN CELL VOLUME 89.7 fl (80-96); MEAN PLT VOLUME 8.3 fl (7.5-11.1); PLATELET COUNT 207 K/MM3 (134-434); RDW 12.4 % (11.9-15.9); WHITE BLOOD COUNT 14.2 K/mm3 (4.0-10.0)
[2020-04-07 08:35] LABS: BILIRUBIN,TOTAL 0.6 mg/dL (0.2-1); CREATININE 1.1 mg/dL (0.55-1.3); POTASSIUM 4.9 mmol/L (3.5-5.1); TOT PROT 5.5 g/dl (6.4-8.2)
[2020-04-07 08:40] LABS: ALBUMIN 3.2 g/dl (3.4-5.0); CALCIUM 8.3 mg/dL (8.5-10.1); MAGNESIUM 1.9 mg/dL (1.8-2.4); PHOSPHOROUS 4.3 mg/dL (2.5-4.9)
[2020-04-07] MEDS ORDERED: DEXTROSE 5%-WATER 100 ML IVPB ONE (09:16)
[2020-04-07] MEDS ORDERED: PANTOPRAZOLE SODIUM 40 MG VIAL IVPUSH SCH (10:00)
[2020-04-07] MEDS ORDERED: NICOTINE 14 MG/24 HOURS TOPICAL PATCH TD SCH (10:00)
[2020-04-07] MEDS ORDERED: CEFTRIAXONE 2 GM in DEXTROSE 5%-WATER 100 ML IVPB SCH (10:00)
[2020-04-07] MEDS ORDERED: ENOXAPARIN NA (PORCINE) 40 MG/0.4 ML DISP.SYRIN SQ SCH (10:00)
[2020-04-07 10:02] VITALS: BP 125/64; PULSE 81; TEMP 98.6
[2020-04-07] MEDS: ENOXAPARIN NA (PORCINE) 40 MG/0.4 ML DISP.SYRIN SQ SCH ×2 (10:08→10:14)
[2020-04-07] MEDS ORDERED: ACETAMINOPHEN 325 MG TABLET (FP) PO ONE (10:45)
--- NOTE | 2020-04-07 11:04 | PN ---
Progress Note (short form) - Note Progress Note: Surgery note: Pt states that he tolerated some soup last pm. No nausea or emesis. Vital Signs Period Temp Pulse Resp BP Sys/Castillo Pulse Ox Last 24 Hr 98 F-98.8 F 51-108 16-22 124-151/48-88 98-100 GEN: A&0x3, NAD ABD: soft, non-distended, inc tenderness. Dressing c/d/i with dermabond. Umbilical dressing with small amount of blood on gauze. LE: no calf tenderess or swelling noted b/l CBC, BMP 04/07/20 06:20 04/07/20 06:20 Hepatic Panel Total Bilirubin 0.6 mg/dL (0.2-1) 04/07/20 06:20 AST 36 U/L (15-37) 04/07/20 06:20 ALT 63 U/L (13-61) H 04/07/20 06:20 Alkaline Phosphatase 64 U/L (45-117) 04/07/20 06:20 Albumin 3.2 g/dl (3.4-5.0) L 04/07/20 06:20 A/P: 40 yo male s/p lap donald, POD#1 Diet as tolerated OOB and ambulate Plan for discharge to home today F/u with Dr. Chávez in the office
--- NOTE | 2020-04-07 12:19 | PN ---
Teaching Attending Note Name of Resident: Mariam Grayson ATTENDING PHYSICIAN STATEMENT I saw and evaluated the patient. I reviewed the resident's note and discussed the case with the resident. I agree with the resident's findings and plan as documented. SUBJECTIVE: Pt tolerating PO intake Ready to go home pain is controlled OBJECTIVE: Vital Signs Period Temp Pulse Resp BP Sys/Castillo Pulse Ox Last 24 Hr 98 F-98.8 F 51-108 16-22 124-151/48-88 98-100 GENERAL: Awake, alert, and fully oriented, in no acute distress. HEAD: Normal with no signs of trauma. EYES: Pupils equal, round and reactive to light, extraocular movements intact, sclera anicteric, conjunctiva clear. No lid lag. EARS, NOSE, THROAT: Ears normal, nares patent, oropharynx clear without exudates. Moist mucous membranes. NECK: Normal range of motion, supple without lymphadenopathy, JVD, or masses. LUNGS: Breath sounds equal, clear to auscultation bilaterally. No wheezes, and no crackles. No accessory muscle use. HEART: Regular rate and rhythm, normal S1 and S2 without murmur, rub or gallop. ABDOMEN: Soft, tender over incision sites. Incision areas with dressing in place MUSCULOSKELETAL: Normal range of motion at all joints. No bony deformities or tenderness. No CVA tenderness. UPPER EXTREMITIES: 2+ pulses, warm, well-perfused. No cyanosis. No clubbing. Cap refill <2 seconds. No peripheral edema. LOWER EXTREMITIES: 2+ pulses, warm, well-perfused. No calf tenderness. No peripheral edema. NEUROLOGICAL: Cranial nerves II-XII intact. Normal speech. Normal gait. PSYCHIATRIC: Cooperative. Good eye contact. Appropriate mood and affect. SKIN: Warm, dry, normal turgor, no rashes or lesions noted. ASSESSMENT AND PLAN: 40 y/o M who presents with acute cholecystitis s/p cholecystectomy Patient feels well this morning, minimal pain. tolerating PO intake Patient advised to improve his diet, decrease fatty food intake. Plan to discharge today, caution with lifting weights. please see discharge summary for additional information
--- NOTE | 2020-04-07 12:29 | DS ---
Physical Exam: SUBJECTIVE: Patient seen and examined bedside. Pain is well controlled. Reports having eaten last night with no problems. Patient reports flatulence since surgery. OBJECTIVE: Vital Signs Period Temp Pulse Resp BP Sys/Castillo Pulse Ox Last 24 Hr 98 F-98.8 F 51-108 16-22 124-151/48-88 98-100 PHYSICAL EXAM GENERAL: The patient is awake, alert, and fully oriented, in no acute distress. HEAD: Normal with no signs of trauma. EYES: PERRL, extraocular movements intact, sclera anicteric, conjunctiva clear. ENT: moist mucous membranes. NECK: Trachea midline, full range of motion, supple. LUNGS: Breath sounds equal, clear to auscultation bilaterally HEART: Regular rate and rhythm, S1, S2 ABDOMEN: mild tenderness RUQ and umbilicus near incision sit. Incisions sit look clean without purulent discharge. EXTREMITIES: warm, well-perfused, no edema. NEUROLOGICAL: Normal speech PSYCH: Normal mood, normal affect. SKIN: Warm, dry, normal turgor, no rashes or lesions noted LABS Laboratory Results - last 24 hr 04/07/20 04/07/20 06:20 06:20 WBC 14.2 H RBC 4.70 Hgb 13.6 Hct 42.2 MCV 89.7 MCH 28.9 MCHC 32.2 RDW 12.4 Plt Count 207 MPV 8.3 Sodium 140 Potassium 4.9 Chloride 107 Carbon Dioxide 27 Anion Gap 7 L BUN 13.0 Creatinine 1.1 Est GFR (CKD-EPI)AfAm 95.46 Est GFR (CKD-EPI)NonAf 82.36 Random Glucose 100 Calcium 8.3 L Phosphorus 4.3 Magnesium 1.9 Total Bilirubin 0.6 AST 36 ALT 63 H Alkaline Phosphatase 64 Total Protein 5.5 L Albumin 3.2 L HOSPITAL COURSE: Patient 40 yo male with PMHx of asthma, hemorrhoids and L5 herniated disc presents to the ED with 1 day of sharp abdominal pain in RUQ. CT showed cholecystitis. He was started on IV flagyl and ceftriaxone. Patient underwent a lap donald which showed a thickened inflamed gallbladder. After surgery, patient felt well. Antibiotics were stopped. The patient was discharged and told to take Tylenol for pain and continue to abstain from smoking. He must follow up with surgery within [address] patient's CT also showed a pancreatic cysts and it was recommended that he follow that up as an outpatient with an MRI. We have referred the patient to GI for further workup. Date of Admission:04/05/20 Date of Discharge: 04/07/20 Minutes to complete discharge: 36 Discharge Summary Problems reviewed: Yes Reason For Visit: ACUTE CHOLECYSTITIS BILIARY SLUDGE Current Active Problems Acute cholecystitis (Acute) Biliary sludge (Acute) Condition: Good - Instructions Diet, Activity, Other Instructions: Visit: You came to the hospital with abdominal pain. You were found to have inflammation of your gallbladder. You were treated with fluids and antibiotics. Surgery performed a laparoscopic removal of your gallbladder. You are now stable enough for discharge. A pancreatic cyst was also found on imaging that did not require treatment at this time. Medication: You may take acetaminophen (Tylenol) 1,000mg every 6 hours as needed for pain. Do not take more than 4,000mg a day. Follow Up: Dr. Paulino, surgery, in 1 week for post procedure evaluation. Dr. Saha, gastroenterology, in 2 weeks for the pancreatic cyst to discuss further evaluation. Follow up with your primary care provider within 2 weeks for continuity of care. If you do not have a primary care provider, you may come to the hospital clinic. The information is in your discharge papers. Other Instructions: Avoid heavy lifting until you are reevaluated by your surgeon. Keep surgical sites dry and clean. You may shower but do not submerge them until cleared by your surgeon. Return to the emergency room or call 911 if you develop abdominal pain not relieved with over the counter medications, fever above 101, nausea, vomiting, or diarrhea. Referrals: Jaun Frankel MD [Staff Physician] - 2 Weeks (Resident Clinic) Asif Saha DO [Staff Physician] - 2 Weeks Alexandre Chávez MD [Staff Physician] - 1 Week Disposition: HOME - Home Medications Comprehensive Discharge Medication List: Ambulatory Orders Albuterol Sulfate [Albuterol Sulfate Hfa] 8.5 gm IH PRN 03/30/20 Ascorbic Acid [Vitamin C] 100 mg PO DAILY 03/30/20 Cholecalciferol (Vitamin D3) [Vitamin D3 -] 1,000 unit PO DAILY 03/30/20 Multivit-Mins/Iron/Folic/Lycop [Centrum Ultra Men's Tablet] 1 tab PO DAILY 03/30/20 Nicotine Patch [Nicoderm Patch -] 14 mg TD DAILY patch 04/07/20 This patient is new to me today: No Emergency Visit: Yes ED Registration Date: 04/05/20 Care time: The patient presented to the Emergency Department on the above date and was hospitalized for further evaluation of their emergent condition. Critical Care patient: No - Discharge Referral Referred to [facility] Med P.C.: Yes Physician Referral: Lito Saha DO (GI) ATTENDING PHYSICIAN STATEMENT I saw and evaluated the patient. I reviewed the resident's note and discussed the case with the resident. I agree with the resident's findings and plan as documented. SUBJECTIVE: OBJECTIVE: ASSESSMENT AND PLAN:
--- NOTE | 2020-04-09 11:22 | PATH ---
Surgical Pathology Report Patient Name: CY MCCRAY Med. Rec. #: [id number] /Age/Gender: 1980 (Age: 40) / M Account: [id number] Location: [facility] MED/SURG Taken: 04/06/2020 Received: 04/07/2020 Reported: 04/09/2020 Physicians: Alexandre Chávez M.D. Specimen(s) Received GALLBLADDER Clinical History Acute cholecystitis, biliary sludge Final Diagnosis GALLBLADDER, CHOLECYSTECTOMY: ACUTE SUPERIMPOSED ON CHRONIC CHOLECYSTITIS. Electronically Signed Ben Lee M.D. Gross Description Received in formalin, labeled "gallbladder," is an 8.7 x 3.0 x 3.0 cm. gallbladder with a 0.2 cm. in length portion of cystic duct attached. The outer surface is green and varies from smooth to shaggy. The lumen contains green, tenacious bile. There are no choleliths identified. The mucosa is dark green and velvety. The wall of the gallbladder is focally edematous and averages 0.1 cm. in thickness. Nurse Coordinator sections are submitted in one cassette. 04/07/2020 [facility]04/07/2020
== END 2020-04-07 14:55 | disposition home or self-care (01) | DRG 416 ==
LOC: JER 08:41 → JERBED 13:14 → J8W 14:29
PROVIDERS: ADMIT Internal Medicine; ATTEND Internal Medicine
PROC: 0FT40ZZ Resection of Gallbladder, Open Approach (ICD-10-PCS; principal; 2020-04-06 09:30)
DX: K81.0 Acute cholecystitis (principal); J45.909 Unspecified asthma, uncomplicated; F17.210 Nicotine dependence, cigarettes, uncomplicated; M51.26 Other intervertebral disc displacement, lumbar region; K64.8 Other hemorrhoids; K76.89 Other specified diseases of liver; D72.829 Elevated white blood cell count, unspecified; K43.9 Ventral hernia without obstruction or gangrene
CPT/HCPCS: 36415; 74177-TC; 76705-TC; 80053; 81003; 83690; 83735; 84100; 85025; 85027; 85610; 85730; 86850; 86900; 86901; 87086; 88304-TC; 93005; 93010; 94010; 94760; 99285-25; J0131; Q9967; U0003

== ENCOUNTER 2021-08-24 20:21 | Emergency (ER) | payer BC ==
[2021-08-24 20:52] VITALS: BP 134/86; PULSE 98; TEMP 99.3; BMI 24.6
[2021-08-24] MEDS ORDERED: METOCLOPRAMIDE HCL INJECTION 10 MG/2 ML VIAL IVPUSH ONE ×2 (21:30→23:30)
[2021-08-24] MEDS ORDERED: SODIUM CHLORIDE 0.9% 500 ML INFUS.BAG IV ONE ×2 (21:30→23:30)
[2021-08-24] MEDS ORDERED: ACETAMINOPHEN 1000 MG/100 ML VIAL IVPB ONE (21:31)
[2021-08-24] MEDS ORDERED: METOCLOPRAMIDE HCL INJECTION 10 MG/2 ML VIAL ONE (22:08)
[2021-08-24] MEDS ORDERED: ACETAMINOPHEN INJECTION 100 ML IVPB ONE (22:14)
[2021-08-24 22:57] LABS: HEMATOCRIT 44.8 % (35.4-49); HEMOGLOBIN 14.8 GM/dL (11.7-16.9); MCH 29.1 pg (25.7-33.7); MEAN CELL VOLUME 88.1 fl (80-96); MEAN PLT VOLUME 8.2 fl (7.5-11.1); PLATELET COUNT 172 10^3/uL (134-434); RBC 5.08 M/mm3 (4.00-5.60); RDW 13.2 % (11.9-15.9)
[2021-08-24] MEDS ORDERED: MECLIZINE HCL 25 MG TABLET (FP) PO ONE (23:30)
[2021-08-24 23:37] LABS: ANISOCYTOSIS 0; HELMET CELLS 0; HOWELL-JOLLY BODIES 0; MACROCYTOSIS 0; OVALOCYTE 0; PLATELET ESTIMATE NORMAL; ROULEAU 0; SICKELED CELLS 0; TARGET CELLS 0; TEAR DROP CELLS 0; TOXIC GRANULATION 0
[2021-08-25 00:16] LABS: CHLORIDE 106 mmol/L (98-107); SODIUM 140 mmol/L (136-145)
[2021-08-25 00:21] LABS: BLOOD UREA NITROGEN 19.2 mg/dL (7-18); CALCIUM 8.3 mg/dL (8.5-10.1)
[2021-08-25 00:22] LABS: ALBUMIN 3.6 g/dl (3.4-5.0); ANION GAP 9 MMOL/L (8-16); CO2 25 mmol/L (21-32)
[2021-08-25 00:25] LABS: CREATININE 1.2 mg/dL (0.55-1.3); SGOT/AST 14 U/L (15-37); SGPT/ALT 25 U/L (13-61)
[2021-08-25 00:27] LABS: BILIRUBIN,TOTAL 0.3 mg/dL (0.2-1)
[2021-08-25 00:28] LABS: ALK PHOS 91 U/L (45-117); TOT PROT 6.8 g/dl (6.4-8.2)
[2021-08-25 00:33] LABS: GLUCOSE,RANDOM 85 mg/dL (74-106)
[2021-08-25] MEDS ORDERED: METOCLOPRAMIDE HCL INJECTION 10 MG/2 ML VIAL ONE (01:26)
[2021-08-25] MEDS ORDERED: MECLIZINE HCL 25 MG TABLET (FP) ONE (01:26)
== END 2021-08-25 02:35 | disposition home or self-care (01) ==
LOC: JER 20:21
DX: U07.1 COVID-19 (principal)
CPT/HCPCS: 36415; 70450-TC; 80053; 82550; 82553; 84484; 85025; 99285-25; C9803; J0131; U0003; U0005

== ENCOUNTER 2022-08-07 10:13 | Emergency (ER) | payer BC ==
[2022-08-07 10:34] VITALS: RESP 18; TEMP 98; BMI 25.7
[2022-08-07] MEDS ORDERED: FAMOTIDINE 20 MG TABLET PO ONE (15:28)
[2022-08-07] MEDS ORDERED: MAG HYDROX/AL HYDROX/SIMETH 30 ML UNIT-DOSE CUP PO ONE (15:30)
[2022-08-07] MEDS ORDERED: FAMOTIDINE 20 MG TABLET ONE (15:44)
[2022-08-07] MEDS ORDERED: MAG HYDROX/AL HYDROX/SIMETH 30 ML UNIT-DOSE CUP ONE (15:44)
[2022-08-07 17:27] VITALS: BP 134/80; PULSE 61
== END 2022-08-07 17:30 | disposition home or self-care (01) ==
LOC: JER 10:13
DX: K62.5 Hemorrhage of anus and rectum (principal); R10.13 Epigastric pain
CPT/HCPCS: 36415; 82272; 99283-25